=== PATIENT | male | born 1970 | race Caucasian/White ===

== ENCOUNTER → 2018-11-28 | Outpatient (CLI) | payer OTHER ==
[~2018-11-28] MED LIST: ACETAMINOPHEN325 M1 PO; ALLERGY RELIEF25 M2 PO; AMBIEN 10 MG TA10 MG PO; ASPIRIN325 PO; BENICAR HCT 401 EACH PO; CARVEDILOL6.25 MG PO; CELECOXIB100 MG PO; HUMALOG100 UNIT/2 SUBQ; HYDROCODONE-APA1 TA1 PO; LIPITOR PO; LIPITOR10 MG PO; NEURONTIN 300300 M1 PO; NORCO 5-325 TA1 EACH PO; NORVASC 5 MG TAB5 MG PO; NOVOLOG100 UNIT/1; OMEGA-31000 M1 PO; TRAMADOL 50 MG50 MG PO; TRIBENZOR 40-51 EACH PO; VITAMIN D-32000 UNIT PO; XARELTO10 MG PO
== END ==
LOC: CAT 11:31
DX: Z13.6 Encounter for screening for cardiovascular disorders (principal); E78.00 Pure hypercholesterolemia, unspecified; I25.10 Atherosclerotic heart disease of native coronary artery without angina pectoris

== ENCOUNTER → 2020-05-20 | Outpatient (CLI) | payer OTHER | LOC: SJCVCIMAG 09:51 | PROVIDERS: ATTEND Internal Medicine Cardiovascular Disease | DX: I07.1 Rheumatic tricuspid insufficiency (principal); E11.9 Type 2 diabetes mellitus without complications ==

== ENCOUNTER → 2020-11-06 | Outpatient (CLI) | payer OTHER | LOC: RAD 14:29 | PROVIDERS: ATTEND Family Medicine | DX: M51.36 Other intervertebral disc degeneration, lumbar region (principal); M54.5 Low back pain ==

== ENCOUNTER 2020-11-09 10:12 | Emergency (ER) | payer OTHER ==
[~2020-11-09] VITALS: Ht 182.9 cm; Wt 97.5 kg
[2020-11-09] MEDS ORDERED: NEXLIZET 180-11 EACH PO (10:59)
[2020-11-09] MEDS ORDERED: CARVEDILOL12.5 MG PO (11:00)
[2020-11-09] MEDS ORDERED: BENICAR40 MG PO (11:00)
[2020-11-09] MEDS ORDERED: ASPIR-TRIN325 MG PO (11:01)
[2020-11-09] MEDS ORDERED: FISH OIL 1,001000 M3 PO (11:02)
[2020-11-09] MEDS ORDERED: VITAMIN D3-ALO1 EACH PO (11:02)
[2020-11-09] MEDS ORDERED: MOBIC7.5 MG PO ×2 (11:10→11:48)
[2020-11-09] MEDS ORDERED: NORCO 10-325 T1 EACH PO ×2 (11:10→11:48)
[2020-11-09 11:58] VITALS: BP 110/64
--- NOTE | 2020-11-10 08:43 | EKG ---
[address] [place] [address] ELECTROCARDIOGRAM REPORT Name: BRIAN PACK Room #: [facility] ([place], [place])Rehan#: [id number] Admission: 11/09/20 Attend Phys: Discharge: 11/09/20 Date of : 72 Report #: [id number] [facility] ED Test Date: 2020-11-09 Test Time: 10:33:37 Pat Name: BRIAN PACK Department: Room: Gender: M Senior Strategy Manager: jailyn reed : 1970 Requested By: Hawk Zambrano Order Number: [id number] MD: Leroy Bustillo Measurements Intervals [place] Rate: 70 P: 36 GA: 154 QRS: 27 QRSD: 99 T: 28 QT: 369 QTc: 399 Interpretive Statements Sinus rhythm Normal tracing No previous ECG available for comparison Electronically Signed On 11-10-2020 8:43:03 CDT by Leroy Bustillo [email or web address] <ELECTRONICALLY SIGNED> By: Leroy Bustillo MD, [facility] 11/10/20 [id number] Leroy Bustillo MD, FACC /EPI
== END 2020-11-09 12:00 | disposition home or self-care (01) ==
LOC: ER 10:12
DX: M54.5 Low back pain (principal); E11.9 Type 2 diabetes mellitus without complications; I10 Essential (primary) hypertension; E78.00 Pure hypercholesterolemia, unspecified; Z79.82 Long term (current) use of aspirin; Z79.899 Other long term (current) drug therapy; Z96.659 Presence of unspecified artificial knee joint; Z98.890 Other specified postprocedural states

== ENCOUNTER → 2021-02-13 | Outpatient (CLI) | payer OTHER ==
[~2021-02-13] MED LIST changes: +ASPIR-TRIN325 MG PO; +BENICAR40 MG PO; +CARVEDILOL12.5 MG PO; +FISH OIL 1,001000 M3 PO; +MOBIC7.5 MG PO; +NEXLIZET 180-11 EACH PO; +NORCO 10-325 T1 EACH PO; +VITAMIN D3-ALO1 EACH PO
== END ==
LOC: ULTRA 13:47
PROVIDERS: ATTEND Family Medicine
DX: I86.1 Scrotal varices (principal); N50.89 Other specified disorders of the male genital organs

== ENCOUNTER → 2021-06-09 | Outpatient (CLI) | payer OTHER | LOC: SJCVCIMAG 07:45 | PROVIDERS: ATTEND Internal Medicine Cardiovascular Disease | DX: Z01.810 Encounter for preprocedural cardiovascular examination (principal); I25.10 Atherosclerotic heart disease of native coronary artery without angina pectoris; R06.00 Dyspnea, unspecified; R93.1 Abnormal findings on diagnostic imaging of heart and coronary circulation ==